=== PATIENT | male | born 1985 | race Caucasian/White ===

== ENCOUNTER 2017-11-04 15:10 | Emergency (ER) | payer SELFPAY ==
[2017-11-04] MEDS ORDERED: NACL 0.9% 1000 ML 1,000 ML IV ONE (16:02)
[2017-11-04 16:26] LABS: Basophils % (Auto) 0.4 % (0.0-1.8); Eosinophils # (Auto) 0.2 K/mm3 (0.0-0.4); Eosinophils % (Auto) 2.4 % (0.0-4.3); Hematocrit 40.3 % (35.5-45.6); Hemoglobin 13.8 gm/dl (11.8-15.2); Lymphocytes # (Auto) 0.9 K/mm3 (1.2-5.4); Mean Corpuscular HGB Conc 34 % (32-34); Mean Corpuscular Hemoglobin 31 pg (28-32); Mean Corpuscular Volume 89 fl (84-94); Monocytes # (Auto) 0.6 K/mm3 (0.0-0.8); Monocytes % (Auto) 8.4 % (0.0-7.3); Platelet Count 148 K/mm3 (140-440); Red Blood Count 4.52 M/mm3 (3.65-5.03); Red Cell Distribution Width 13.3 % (13.2-15.2)
[2017-11-04 16:40] LABS: BUN/Creatinine Ratio 13; Blood Urea Nitrogen 9 mg/dL (9-20); Calcium 8.4 mg/dL (8.4-10.2); Hemolysis Index 22
[2017-11-04 19:09] VITALS: BP 107/67
--- NOTE | 2017-11-04 19:45 | Emergency Department Report ---
History of Present Illness - General Chief Complaint: Overdose Stated Complaint: POSS OVERDOSE Time Seen by Provider: 11/04/17 15:52 Source: patient, EMS Mode of arrival: Stretcher Limitations: No Limitations - History of Present Illness Initial Comments: Patient is a 31-year-old male past history of drug abuse presenting with possible overdose. Patient states he woke up this morning and took a few Xanax then after a while he took a few more patient states he is trying to get high. Patient also although he does not admit to heroin use did have needles and paraphernalia in his car. Patient was noted to be sleeping in a vehicle that was pulled over by police patient is very truthful about his drug use. Does not have any intentions at the moment of getting off of drugs. Patient has no other complaints at this time MD Complaint: intentional overdose -: This morning Intent: other (recreational) - Related Data Allergies Allergy/AdvReac Type Severity Reaction Status Date / Time No Known Allergies Allergy Unverified 11/04/17 15:28 ED Review of Systems ROS: Stated complaint: POSS OVERDOSE Other details as noted in HPI Comment: All other systems reviewed and negative ED Past Medical Hx - Past Medical History Previous Medical History?: No - Surgical History Additional Surgical History: L foot, R leg - Social History Smoking Status: Never Smoker Substance Use Type: Heroin, Prescribed ED Physical Exam - General Limitations: No Limitations General appearance: alert, appears intoxicated, lethargic - Head Head exam: Present: atraumatic, normocephalic - Eye Eye exam: Present: normal appearance - ENT ENT exam: Present: mucous membranes moist - Neck Neck exam: Present: normal inspection - Respiratory Respiratory exam: Present: normal lung sounds bilaterally. Absent: respiratory distress, wheezes, rales, rhonchi - Cardiovascular Cardiovascular Exam: Present: regular rate, normal rhythm. Absent: systolic murmur, diastolic murmur, rubs, gallop - GI/Abdominal GI/Abdominal exam: Present: soft, normal bowel sounds - Rectal Rectal exam: Present: deferred - Extremities Exam Extremities exam: Present: normal inspection - Back Exam Back exam: Present: normal inspection - Neurological Exam Neurological exam: Present: alert, oriented X3 - Psychiatric Psychiatric exam: Present: normal affect, normal mood - Skin Skin exam: Present: warm, dry, intact, normal color. Absent: rash ED Course Vital Signs 11/04/17 11/04/17 11/04/17 15:38 15:43 15:45 Temperature 98.4 F Pulse Rate 110 H 111 H Respiratory 12 10 L Rate Blood Pressure 104/66 Blood Pressure 98/55 [Left] O2 Sat by Pulse 95 96 96 Oximetry 11/04/17 11/04/17 11/04/17 16:00 16:16 16:30 Temperature Pulse Rate 113 H 106 H 109 H Respiratory 12 17 11 L Rate Blood Pressure 104/66 107/67 107/67 Blood Pressure [Left] O2 Sat by Pulse 96 Oximetry 11/04/17 11/04/17 11/04/17 16:46 17:00 17:16 Temperature Pulse Rate 108 H 113 H 109 H Respiratory 14 12 12 Rate Blood Pressure 107/67 107/67 107/67 Blood Pressure [Left] O2 Sat by Pulse Oximetry 11/04/17 11/04/17 17:30 19:09 Temperature Pulse Rate 109 H Respiratory 13 16 Rate Blood Pressure 107/67 Blood Pressure [Left] O2 Sat by Pulse 97 Oximetry ED Medical Decision Making - Lab Data Result diagrams: 11/04/17 16:07 11/04/17 16:07 - Medical Decision Making Patient received Narcan before arrival. Patient although sleepy is arousable to voice. Patient was allowed to rest in emergency department. Patient at 1945 is awake alert and would like to go home. Patient having no further consultations from his intoxication. O2 sats within normal limits. Critical care attestation.: If time is entered above; I have spent that time in minutes in the direct care of this critically ill patient, excluding procedure time. ED Disposition Clinical Impression: Benzodiazepine abuse, Opiate abuse, continuous Disposition: DC-01 TO HOME OR SELFCARE Is pt being admited?: No Does the pt Need Aspirin: No Condition: Stable Referrals: PRIMARY CARE, [Primary Care Provider] - 3-5 Days
[2017-11-04 20:03] LABS: Cannabinoid Screen,Urine PRESUMPTIVE NEGATIVE; Cocaine Screen,Urine PRESUMPTIVE NEGATIVE; Methadone Screen,Urine PRESUMPTIVE NEGATIVE
[2017-11-04 20:17] LABS: Amphetamine Screen,Urine PRESUMPTIVE POSITIVE; Benzodiazepines Screen,Urine PRESUMPTIVE POSITIVE; Opiate Screen,Urine PRESUMPTIVE POSITIVE
== END 2017-11-04 21:00 | disposition home or self-care (01) ==
LOC: ED 15:10
DX: F13.10 Sedative, hypnotic or anxiolytic abuse, uncomplicated (principal); F11.10 Opioid abuse, uncomplicated
CPT/HCPCS: 36415; 80048; 80307; 85025; 99284; G0480; 80320